=== PATIENT | male | born 1985 | race Caucasian/White ===

== ENCOUNTER 2017-04-24 17:39 | Emergency (ER) | payer MEDICAID ==
--- NOTE | 2017-04-24 18:41 | UC ---
Respiratory Complaint HPI - HPI Summary HPI Summary: 31 year old male presents with complains of cough, chest congestion, and fever. - History of Current Complaint Chief Complaint: UCRespiratory Stated Complaint: CHEST CONGESTION Time Seen by Provider: 04/24/17 18:41 Hx Obtained From: Patient Onset/Duration: Sudden Onset Severity Initially: Moderate Severity Currently: Moderate Pain Scale Used: 0-10 Numeric - 5 - Allergies/Home Medications Allergies/Adverse Reactions: Allergies Allergy/AdvReac Type Severity Reaction Status Date / Time pets Allergy Difficulty Uncoded 04/24/17 18:26 Breathing seasonal Allergy Eyes Uncoded 04/24/17 18:26 Itchy/Swollen/Red/Watery PMH/Surg Hx/FS Hx/Imm Hx Previously Healthy: Yes - Surgical History Surgical History: Yes Surgery Procedure, Year, and Place: ICD placement. hernia abdominal - Family History Known Family History: Positive: None - Social History Alcohol Use: None Substance Use Type: None Smoking Status (MU): Never Smoked Tobacco Have You Smoked in the Last Year: No - Immunization History Most Recent Influenza Vaccination: not this season Review of Systems Constitutional: Fever, Chills Skin: Negative Eyes: Negative ENT: Negative Respiratory: Negative Cardiovascular: Negative Gastrointestinal: Negative Genitourinary: Negative Motor: Negative Neurovascular: Negative Musculoskeletal: Negative Neurological: Headache Psychological: Negative All Other Systems Reviewed And Are Negative: Yes Physical Exam Triage Information Reviewed: Yes Appearance: Ill-Appearing Vital Signs: Initial Vital Signs Temp 38.0 C 04/24/17 18:24 Pulse 92 04/24/17 18:24 Resp 12 04/24/17 18:24 BP 116/63 04/24/17 18:24 Pulse Ox 100 04/24/17 18:24 Vital Signs Reviewed: Yes Eye Exam: Normal ENT Exam: Normal Dental Exam: Normal Neck exam: Normal Neck: Positive: 1 Respiratory Exam: Normal Cardiovascular Exam: Normal Abdominal Exam: Normal Musculoskeletal Exam: Normal Neurological Exam: Normal Psychological Exam: Normal Skin Exam: Normal UC Diagnostic Evaluation - Laboratory O2 Sat by Pulse Oximetry: 100 Respiratory Course/Dx - Differential Dx/Diagnosis Provider Diagnoses: fever Discharge - Discharge Plan Condition: Stable Disposition: OTHER Discharge Disposition Comment: patient suggested to go to the er Patient Education Materials: Fever in Adults (ED) Referrals: Ronnie Rivera MD [Primary Care Provider] - Additional Instructions: patient suggested to go to er for fever, chills, and fatigue after dose of effexor was changed.
--- NOTE | 2017-04-24 19:22 | RAD ---
INDICATION: Cough COMPARISON: None TECHNIQUE: PA and lateral dual-energy views were obtained. FINDINGS: Bones/Soft Tissues: There are no acute bony findings. There is left-sided cardiac pacemaker/defibrillator. Cardiomediastinal: The cardiomediastinal silhouette is normal. Lungs: There are no infiltrates. Pleura: There are no pleural effusions. Other: None IMPRESSION: NO ACTIVE DISEASE.
[2017-04-24 20:06] VITALS: BP 112/64
== END 2017-04-24 20:14 ==
LOC: UCEAST 17:39
DX: R50.9 Fever, unspecified (principal); R09.89 Other specified symptoms and signs involving the circulatory and respiratory systems; R05 Cough
CPT/HCPCS: 71020; 87502; 87651; 99212; G0463

== ENCOUNTER 2017-04-24 20:58 | Emergency (ER) | payer MEDICAID ==
[2017-04-24] MEDS ORDERED: Acetaminophen TAB* 325 MG PO ONE (23:29)
[2017-04-25 00:32] LABS: Urine Bacteria Absent (Absent); Urine Bilirubin Negative (Negative); Urine Glucose Negative (Negative); Urine Nitrite Negative (Negative)
[2017-04-25 00:49] LABS: Hematocrit 43 % (42-52); Mean Corpuscular HGB Conc 35 g/dl (31-36); Mean Corpuscular Hemoglobin 30 pg (27-31); Mean Corpuscular Volume 86 fL (80-94); Mean Platelet Volume 8 um3 (7.4-10.4); Red Cell Distribution Width 13 % (10.5-15)
[2017-04-25 01:01] LABS: Hemoglobin 14.8 g/dl (14.0-18.0); Red Blood Count 4.95 10^6/ul (4.0-5.4); White Blood Count 8.9 10^3/ul (3.5-10.8)
[2017-04-25 01:05] LABS: Albumin 4.7 g/dL (3.2-5.2); Calcium 9.7 mg/dL (8.6-10.3); EGFR African American 112.8 (>60); EGFR Non-African American 87.7 (>60); Globulin 3.7 g/dL (2-4); Potassium 3.3 mmol/L (3.5-5.0); Total Bilirubin 1.9 mg/dL (0.2-1.0); Total Protein 8.4 g/dL (6.4-8.9)
[2017-04-25] MEDS ORDERED: Potassium Chlor TAB* 20 MEQ TAB.ER PO ONE (01:16)
[2017-04-25 02:18] VITALS: BP 96/60
--- NOTE | 2017-04-25 02:41 | ED ---
Yuniel Jaffe Thomas, scribed for Pablo Christie on 04/25/17 at 0007 . Complex/Multi-Sys Presentation - HPI Summary HPI Summary: The pt is a 31 y/o M referred from E c/o myalgia that began three days ago. Pt additionally c/o a fever for the last two days. Pt denies CP and abd pain. The patient has Hx of anxiety and takes Effexor. Two days ago, his dosage of Effexor was increased from 37.5mg to 150mg. PMHx includes a long QTc and PSHx includes a defibrillator. He is on atenolol. The patient is accompanied by a female. - History Of Current Complaint Chief Complaint: EDWeakness Time Seen by Provider: 04/24/17 23:12 Hx Obtained From: Patient, Family/Dinkey Dispatcher - female is in the room Onset/Duration: Lasting Days - onset of symptoms three days ago, Still Present Timing: Constant Aggravating Factor(s): None. Alleviating Factor(s): None. Associated Signs And Symptoms: Positive: Other - Myalgia, fever; NEGATIVE: abd pain, CP - Allergies/Home Medications Allergies/Adverse Reactions: Allergies Allergy/AdvReac Type Severity Reaction Status Date / Time pets Allergy Difficulty Uncoded 04/24/17 21:09 Breathing seasonal Allergy Eyes Uncoded 04/24/17 21:09 Itchy/Swollen/Red/Watery PMH/Surg Hx/FS Hx/Imm Hx Previously Healthy: No Cardiovascular History: Reports: Other Cardiovascular Problems/Disorders - Hx Long QT Respiratory History: Reports: Hx Asthma Psychiatric History: Reports: Hx Anxiety - Surgical History Surgery Procedure, Year, and Place: ICD placement. hernia abdominal Infectious Disease History: No Infectious Disease History: Reports: Hx Hepatitis - hepatitis E Denies: Hx Clostridium Difficile, Hx Human Immunodeficiency Virus (HIV), Hx of Known/Suspected MRSA, Hx Shingles, Hx Tuberculosis, Hx Known/Suspected VRE, Hx Known/Suspected VRSA, History Other Infectious Disease, Traveled Outside the [place] in Last 30 Days - Family History Known Family History: Positive: Diabetes, Other - Long QTc - Social History Alcohol Use: None Hx Substance Use: No Substance Use Type: Reports: None Hx Tobacco Use: No Smoking Status (MU): Never Smoked Tobacco Have You Smoked in the Last Year: No Review of Systems Positive: Fever Negative: Chest Pain Negative: Abdominal Pain Positive: Myalgia All Other Systems Reviewed And Are Negative: Yes Physical Exam - Summary Physical Exam Summary: Appearance: Well appearing, no pain distress Skin: warm, dry, reflects adequate perfusion Head/face: normal Eyes: EOMI, ROWAN ENT: normal Neck: supple, nontender Respiratory: CTA, breath sounds present Cardiovascular: RRR, pulses symmetrical Abdomen: nontender, soft Bowel: present Musculoskeletal: normal, strength/ROM intact Neuro: normal, sensory motor intact, A&Ox3 Triage Information Reviewed: Yes Vital Signs On Initial Exam: Initial Vitals Temp Pulse Resp BP Pulse Ox 100.1 F 101 18 118/74 98 04/24/17 21:06 04/24/17 21:06 04/24/17 21:06 04/24/17 21:06 04/24/17 21:06 Vital Signs Reviewed: Yes - [place] Coma Scale Coma Scale Total: 15 Diagnostics - Vital Signs Vital Signs Temp Pulse Resp BP Pulse Ox 04/24/17 21:06 100.1 F 101 18 118/74 98 - Laboratory Lab Results: Lab Results 04/24/17 04/25/17 04/25/17 Range/Units 23:52 00:20 00:20 WBC 8.9 (3.5-10.8) 10^3/ul RBC 4.95 (4.0-5.4) 10^6/ul Hgb 14.8 (14.0-18.0) g/dl Hct 43 (42-52) % MCV 86 (80-94) fL MCH 30 (27-31) pg MCHC 35 (31-36) g/dl RDW 13 (10.5-15) % Plt Count 238 (150-450) 10^3/ul MPV 8 (7.4-10.4) um3 Neut % (Auto) 82.2 (38-83) % Lymph % (Auto) 11.0 L (25-47) % [place] % (Auto) 6.5 (1-9) % Eos % (Auto) 0 (0-6) % Baso % (Auto) 0.3 (0-2) % Absolute Neuts (auto) 7.3 (1.5-7.7) 10^3/ul Absolute Lymphs (auto) 1.0 (1.0-4.8) 10^3/ul Absolute Monos (auto) 0.6 (0-0.8) 10^3/ul Absolute Eos (auto) 0 (0-0.6) 10^3/ul Absolute Basos (auto) 0 (0-0.2) 10^3/ul Absolute Nucleated RBC 0.01 10^3/ul Nucleated RBC % 0.1 INR (Anticoag Therapy) 1.08 (0.89-1.11) APTT 30.5 (26.0-36.3) seconds Sodium (133-145) mmol/L Potassium (3.5-5.0) mmol/L Chloride (101-111) mmol/L Carbon Dioxide (22-32) mmol/L Anion Gap (2-11) mmol/L BUN (6-24) mg/dL Creatinine (0.67-1.17) mg/dL Est GFR ( Amer) (>60) Est GFR (Non-Af Amer) (>60) BUN/Creatinine Ratio (8-20) Glucose (70-100) mg/dL Calcium (8.6-10.3) mg/dL Total Bilirubin (0.2-1.0) mg/dL AST (13-39) U/L ALT (7-52) U/L Alkaline Phosphatase (34-104) U/L Total Protein (6.4-8.9) g/dL Albumin (3.2-5.2) g/dL Globulin (2-4) g/dL Albumin/Globulin Ratio (1-3) Urine Color [place] Urine Appearance Cloudy Urine pH 5.0 (5-9) Ur Specific [place] 1.021 (1.010-1.030) Urine Protein 1+(30 mg/dl) H (Negative) Urine Ketones 1+ H (Negative) Urine Blood 1+ H (Negative) Urine Nitrate Negative (Negative) Urine Bilirubin Negative (Negative) Urine Urobilinogen Positive H (Negative) Ur Leukocyte Esterase Negative (Negative) Urine WBC (Auto) Trace(0-5/hpf) (Absent) Urine RBC (Auto) 2+(6-10/hpf) H (Absent) Ur Squamous Epith Cells Present H (Absent) Urine Bacteria Absent (Absent) Urine Glucose Negative (Negative) 04/25/17 Range/Units 00:20 WBC (3.5-10.8) 10^3/ul RBC (4.0-5.4) 10^6/ul Hgb (14.0-18.0) g/dl Hct (42-52) % MCV (80-94) fL MCH (27-31) pg MCHC (31-36) g/dl RDW (10.5-15) % Plt Count (150-450) 10^3/ul MPV (7.4-10.4) um3 Neut % (Auto) (38-83) % Lymph % (Auto) (25-47) % [place] % (Auto) (1-9) % Eos % (Auto) (0-6) % Baso % (Auto) (0-2) % Absolute Neuts (auto) (1.5-7.7) 10^3/ul Absolute Lymphs (auto) (1.0-4.8) 10^3/ul Absolute Monos (auto) (0-0.8) 10^3/ul Absolute Eos (auto) (0-0.6) 10^3/ul Absolute Basos (auto) (0-0.2) 10^3/ul Absolute Nucleated RBC 10^3/ul Nucleated RBC % INR (Anticoag Therapy) (0.89-1.11) APTT (26.0-36.3) seconds Sodium 131 L (133-145) mmol/L Potassium 3.3 L (3.5-5.0) mmol/L Chloride 97 L (101-111) mmol/L Carbon Dioxide 26 (22-32) mmol/L Anion Gap 8 (2-11) mmol/L BUN 12 (6-24) mg/dL Creatinine 1.00 (0.67-1.17) mg/dL Est GFR ( Amer) 112.8 (>60) Est GFR (Non-Af Amer) 87.7 (>60) BUN/Creatinine Ratio 12.0 (8-20) Glucose 115 H (70-100) mg/dL Calcium 9.7 (8.6-10.3) mg/dL Total Bilirubin 1.90 H (0.2-1.0) mg/dL AST 216 H (13-39) U/L ALT 230 H (7-52) U/L Alkaline Phosphatase 95 (34-104) U/L Total Protein 8.4 (6.4-8.9) g/dL Albumin 4.7 (3.2-5.2) g/dL Globulin 3.7 (2-4) g/dL Albumin/Globulin Ratio 1.3 (1-3) Urine Color Urine Appearance Urine pH (5-9) Ur Specific [place] (1.010-1.030) Urine Protein (Negative) Urine Ketones (Negative) Urine Blood (Negative) Urine Nitrate (Negative) Urine Bilirubin (Negative) Urine Urobilinogen (Negative) Ur Leukocyte Esterase (Negative) Urine WBC (Auto) (Absent) Urine RBC (Auto) (Absent) Ur Squamous Epith Cells (Absent) Urine Bacteria (Absent) Urine Glucose (Negative) Result Diagrams: 04/25/17 00:20 04/25/17 00:20 Lab Statement: Any lab studies that have been ordered have been reviewed, and results considered in the medical decision making process. Complex Multi-Symp Course/Dx Assessment/Plan: The patient came in with weakness and body aches. Labs were obtained that showed abnormal LFTs. The patient is not in serotonin syndrome as discussed with Dr. Russell, who recommends discharge as there is no indication for admission at present. Otherwise, the patient will follow up with his primary care provider about the continuation of his Effexor. The patient understands. - Diagnoses Differential Diagnoses/HQI/PQRI: Sepsis, Urinary Tract Infection, Other - drug reaction,serotonin syndrome Provider Diagnoses: Weakness, Abnormal LFTs, History of anxiety Discharge - Discharge Plan Condition: Stable Disposition: HOME Patient Education Materials: Weakness (ED), Anxiety (ED) Referrals: Ronnie Rivera MD [Primary Care Provider] - 3 Days Additional Instructions: Follow up with your primary care provider in three days. Return to the emergency room for any new or worsening symptoms. The documentation as recorded by the Yuniel hendrickson Thomas accurately reflects the service I personally performed and the decisions made by , Pablo Christie.
== END 2017-04-25 02:17 | disposition home or self-care (01) ==
LOC: ED 20:58
DX: R50.9 Fever, unspecified (principal); M79.1 Myalgia; R53.1 Weakness; R94.5 Abnormal results of liver function studies; Z86.59 Personal history of other mental and behavioral disorders
CPT/HCPCS: 36415; 80053; 81003; 81015; 85025; 85610; 85730; 87040; 99283; A9270-GY

== ENCOUNTER 2017-04-30 14:47 | Emergency (ER) | payer SELFPAY ==
[2017-04-30 15:23] VITALS: BP 92/55
--- NOTE | 2017-04-30 15:25 | UC ---
Respiratory Complaint HPI - HPI Summary HPI Summary: 31 YEAR OLD MALE PRESENTS WITH COMPLAINS OF COUGH AND CHEST CONGESTION. - History of Current Complaint Chief Complaint: UCRespiratory Stated Complaint: COLD SYMPTOMS Time Seen by Provider: 04/30/17 15:24 Hx Obtained From: Patient Onset/Duration: Sudden Onset Severity Initially: Moderate Severity Currently: Moderate - Allergies/Home Medications Allergies/Adverse Reactions: Allergies Allergy/AdvReac Type Severity Reaction Status Date / Time pets Allergy Difficulty Uncoded 04/30/17 15:24 Breathing seasonal Allergy Eyes Uncoded 04/30/17 15:24 Itchy/Swollen/Red/Watery Home Medications: Home Medications Venlafaxine ER (NF) [Effexor ER (NF)] 150 mg PO DAILY 04/30/17 [History Confirmed 04/30/17] PMH/Surg Hx/FS Hx/Imm Hx Previously Healthy: Yes - Surgical History Surgical History: Yes Surgery Procedure, Year, and Place: ICD placement- long QT gene. hernia abdominal - Family History Known Family History: Positive: None, Diabetes, Other - Long QTc - Social History Alcohol Use: None Substance Use Type: None Smoking Status (MU): Never Smoked Tobacco Have You Smoked in the Last Year: No - Immunization History Most Recent Influenza Vaccination: not this season Review of Systems Constitutional: Negative Skin: Negative Eyes: Negative ENT: Negative Respiratory: Negative Cardiovascular: Negative Gastrointestinal: Negative Genitourinary: Negative Motor: Negative Neurovascular: Negative Musculoskeletal: Negative Neurological: Negative Psychological: Negative All Other Systems Reviewed And Are Negative: Yes Physical Exam Triage Information Reviewed: Yes Vital Signs: Initial Vital Signs Temp 37.1 C 04/30/17 15:17 Pulse 67 04/30/17 15:17 Resp 16 04/30/17 15:17 BP 92/55 04/30/17 15:17 Pulse Ox 97 04/30/17 15:17 Vital Signs Reviewed: Yes Eye Exam: Normal ENT Exam: Normal ENT: Positive: Pharyngeal erythema, Nasal congestion, Nasal drainage Dental Exam: Normal Neck exam: Normal Neck: Positive: 1 Respiratory: Positive: Rhonchi, Wheezing Cardiovascular Exam: Normal Abdominal Exam: Normal Musculoskeletal Exam: Normal Neurological Exam: Normal Psychological Exam: Normal Skin Exam: Normal UC Diagnostic Evaluation - Laboratory O2 Sat by Pulse Oximetry: 97 Respiratory Course/Dx - Differential Dx/Diagnosis Provider Diagnoses: COUGH. CHEST CONGESTION. POST NASAL DRIP Discharge - Discharge Plan Condition: Stable Disposition: HOME Prescriptions: Albuterol 2.5MG/3ML (0.083%)* [Ventolin 2.5 MG/3 ML NEB.TIMOTHY*] 2.5 mg INH Q6H # 90 neb.timothy Albuterol HFA INHALER* [Ventolin HFA Inhaler*] 1 puff INH Q6H PRN #1 mdi PRN Reason: Wheezing Amoxicillin/Clavulanate TAB* [Augmentin TAB 875*] 875 mg PO BID #20 tab LoraTADine TAB(NF) [Claritin 10 MG TAB(NF)] 10 mg PO DAILY #30 tab Patient Education Materials: Allergic Rhinitis (ED) Referrals: Ronnie Rivera MD [Primary Care Provider] -
== END 2017-04-30 16:05 | disposition home or self-care (01) ==
LOC: UCEAST 14:47
DX: R05 Cough (principal); R09.89 Other specified symptoms and signs involving the circulatory and respiratory systems; R09.82 Postnasal drip; Z95.810 Presence of automatic (implantable) cardiac defibrillator
CPT/HCPCS: 99202; G0463

== ENCOUNTER 2017-07-17 19:52 | Emergency (ER) | payer OTHER ==
[2017-07-17] MEDS ORDERED: Glucagon* 1 MG VIAL IV ONE (20:52)
--- NOTE | 2017-07-17 21:02 | ED ---
GI/ HPI - HPI Summary HPI Summary: 31M presents with choking episode today. He states he was eating chicken wing pizza and started to choke on it. He states he attempted for vomit but couldn' t. He tried some water and vomited it up. He is not drooling and there is no respiratory issues. He denies any chest pain or SOB. He states the piece seems like it is stuck in his lower esophagus. He was given some water in the ED and he immediately vomited. He states that felt like this this has happened before but has always been able to swallow water and resolve it but this time it did not work. He denies any medical conditions. per chart though as ICD placement for long QT. - History of Current Complaint Chief Complaint: EDForeignBodyEsophag Time Seen by Provider: 07/17/17 20:41 Stated Complaint: CHOKING Pain Intensity: 4 - Allergy/Home Medications Allergies/Adverse Reactions: Allergies Allergy/AdvReac Type Severity Reaction Status Date / Time pets Allergy Difficulty Uncoded 04/30/17 15:24 Breathing seasonal Allergy Eyes Uncoded 04/30/17 15:24 Itchy/Swollen/Red/Watery PMH/Surg Hx/FS Hx/Imm Hx Endocrine/Hematology History: Denies: Hx Anticoagulant Therapy Cardiovascular History: Reports: Other Cardiovascular Problems/Disorders - Hx Long QT Respiratory History: Reports: Hx Asthma Psychiatric History: Reports: Hx Anxiety - Surgical History Surgery Procedure, Year, and Place: ICD placement- long QT gene. hernia abdominal Infectious Disease History: No Infectious Disease History: Reports: Hx Hepatitis - hepatitis E 2012 Denies: Hx Clostridium Difficile, Hx Human Immunodeficiency Virus (HIV), Hx of Known/Suspected MRSA, Hx Shingles, Hx Tuberculosis, Hx Known/Suspected VRE, Hx Known/Suspected VRSA, History Other Infectious Disease, Traveled Outside the [place] in Last 30 Days - Family History Known Family History: Positive: None, Diabetes, Other - Long QTc - Social History Alcohol Use: None Hx Substance Use: No Substance Use Type: Reports: None Hx Tobacco Use: No Smoking Status (MU): Never Smoked Tobacco Have You Smoked in the Last Year: No Review of Systems Negative: Fever Negative: Chest Pain Negative: Shortness Of Breath Positive: Other All Other Systems Reviewed And Are Negative: Yes Physical Exam Triage Information Reviewed: Yes Vital Signs On Initial Exam: Initial Vitals Temp Pulse Resp BP Pulse Ox 99.2 F 72 18 122/73 100 07/17/17 19:58 07/17/17 19:58 07/17/17 19:58 07/17/17 19:58 07/17/17 19:58 Vital Signs Reviewed: Yes Skin: Positive: Warm, Dry Head/Face: Positive: Normal Head/Face Inspection Eyes: Positive: Normal, Conjunctiva Clear Respiratory/Lung Sounds: Positive: Clear to Auscultation, Breath Sounds Present Cardiovascular: Positive: Normal, RRR Abdomen Description: Positive: Nontender, Soft Bowel Sounds: Positive: Present Musculoskeletal: Positive: Normal Neurological: Positive: Normal Psychiatric: Positive: Normal - [place] Coma Scale Coma Scale Total: 15 Diagnostics - Vital Signs Vital Signs Temp Pulse Resp BP Pulse Ox 07/17/17 19:58 99.2 F 72 18 122/73 100 - Laboratory Result Diagrams: 07/17/17 23:03 07/17/17 23:03 Lab Statement: Any lab studies that have been ordered have been reviewed, and results considered in the medical decision making process. Re-Evaluation - Re-Evaluation First Eval Re-Evaluation Time: 21:30 Change: Unchanged Comment: keeps vomiting with glucagon GIGU Course/Dx - Course Course Of Treatment: 31M presents with choking episode today. He states he was eating chicken wing pizza and started to choke on it. He states he attempted for vomit but couldn't. He tried some water and vomited it up. He is not drooling and there is no respiratory issues. He denies any chest pain or SOB. He states the piece seems like it is stuck in his lower esophagus. He was given some water in the ED and he immediately vomited. He states that felt like this this has happened before but has always been able to swallow water and resolve it but this time it did not work. on exam no resp distress. lungs CTA. managing airway well. gave water and patient immediately vomited. gave glucagon and patient continues to vomit. dr cota will come into remove object. dr cota scoped him and removed foreign body and said to place on month of omeprazole and follow up in 2-3 weeks. - Diagnoses Differential Diagnoses - Male: Esophagitis/Gastritis, GI Foreign Body, Other - abrasion esophagus Provider Diagnoses: Foreign body in esophagus Discharge - Discharge Plan Condition: Good Disposition: HOME Prescriptions: Omeprazole CAP* [Prilosec CAP* 20 MG] 20 mg PO DAILY #30 cap. Patient Education Materials: Esophageal Foreign Body (ED), Procedural Sedation (ED) Referrals: Ronnie Rivera MD [Primary Care Provider] - Darrel Cota MD [Medical Doctor] - Additional Instructions: Take omeprazole once a day for a month Follow up with GI in 2-3 weeks Return to ED if develop any new or worsening symptoms
[2017-07-17] MEDS ORDERED: Midazolam* 1 MG/ML 10 ML VIAL (10 MG) ONE (22:59)
[2017-07-17 23:19] LABS: Hematocrit 46 % (42-52); Hemoglobin 15.9 g/dl (14.0-18.0); Mean Corpuscular HGB Conc 35 g/dl (31-36); Mean Corpuscular Hemoglobin 30 pg (27-31); Mean Corpuscular Volume 86 fL (80-94); Mean Platelet Volume 8 um3 (7.4-10.4); Platelet Count 326 10^3/ul (150-450); Red Blood Count 5.37 10^6/ul (4.0-5.4); Red Cell Distribution Width 14 % (10.5-15); White Blood Count 22.1 10^3/ul (3.5-10.8)
[2017-07-17 23:34] LABS: EGFR Non-African American 113.5 (>60)
[2017-07-17] MEDS ORDERED: fentaNYL* 50 MCG/ML 2 ML VIAL (100 MCG VIAL) ONE (23:34)
[2017-07-17 23:45] LABS: ABS Basophils 0 10^3/ul (0-0.2); ABS Eosinophils 0 10^3/ul (0-0.6); ABS Lymphocytes 1.2 10^3/ul (1.0-4.8); ABS Monocytes 0.7 10^3/ul (0-0.8); ABS Neutrophils 20.2 10^3/ul (1.5-7.7); ABS Nucleated RBC 0.1 10^3/ul; Eosinophil % 0.2 % (0-6); Lymphocyte % 5.6 % (25-47); Nucleated Red Blood Cells % 0.3
[2017-07-18 02:50] VITALS: BP 101/54
--- NOTE | 2017-07-18 03:04 | CONS ---
GASTROENTEROLOGY CONSULT DATE: 07/17/17 - EMERGENCY DEPT CONSULTING PHYSICIANS: Freddy Domingo; Ronnie Rivera. REASON FOR CONSULTATION: Food bolus impaction tonight while eating chicken wings and P2 chicken. HISTORY: This 31-year-old man who has an AICD for long QT syndrome. Tonight was eating P2 and all of a sudden he could not swallow any fluid. That has continued now for lodud-vhi-c-half hours. He has tried to pour some fluid down but to no avail. He has had similar events since 2011, may be once a month or every other month. He says it is more prone with dry food. He is rather vague on issues. He denies any chronic acid indigestion or heartburn, although he has tried Tums for these episodes. It is not clear that they have helped. He has generally good appetite and stable weight. PAST MEDICAL HISTORY: 1. Anxiety - on Effexor. 2. History of long QT syndrome - his brother at age 15 and maternal cousin also of sudden . He was tested and was felt to have a gene and in 2000 had an AICD placed. The battery was placed in 2013. He has seen Dr. Richard, the last visit he believes August 2016. His AICD went off several times when it was first placed and that was attributed to his growing. It also went off once in 2011 when he was playing basketball. 3. History of acute hepatitis - he says at [facility] he was told he had hepatitis E. He has never been out of the country. Dr. Rivera obtained followup LFTs and bilirubin was 1.9, AST 216, ALT 230. SOCIAL HISTORY: He is and has two young children, 5 and 2. He has worked for a [employer] since January. REVIEW OF SYSTEMS: No recent history of syncope, palpitations, chest pain, vomiting apart from dysphagia episodes, pulmonary disease, skin rash, allergies , asthma, abdominal pain, or abdominal surgery. His bowels are normal. PHYSICAL EXAMINATION: He is a somewhat sallow complected man spitting in a plastic bag, in no overt cardiorespiratory distress. HEENT exam is unremarkable. He has no adenopathy. There is a wire in the left infraclavicular area and AICD on the left mid abdomen. Heart sounds are regular. Breath sounds are normal. The abdomen is symmetric, soft, and nontender. Rectal deferred. Extremities showed no edema. Neurologic is nonfocal with normal cranial nerves, orientation, speech, and movement of all 4 extremities. DIAGNOSTIC STUDIES/LAB DATA: Labs - pending. IMPRESSION: A 31-year-old man with six years of solid food dysphagia and a relative paucity of classic acid indigestion or peptic complaints making eosinophilic esophagitis more likely than a classic peptic stricture. He has an AICD in place and that should not be affected by conscious sedation with midazolam and fentanyl. He is aware of activity restrictions following the EGD and possibility of needing a diagnostic study later. He is aware of a small chance of requiring readmission, further complications, or resistant foreign body. [id number]/[facility] #: [id number] [facility]
--- NOTE | 2017-07-18 18:19 | PRO ---
DATE: 07/17/17 REFERRING PHYSICIAN: Ronnie Rivera. PROCEDURE: Upper gastrointestinal endoscopy and removal of esophageal foreign body INDICATION: See separate consultation. He was eating chicken tonight and felt it lodged. This has happened before. Informed consent was obtained. ENDOSCOPIST: Dr. Ledesma. MEDICATION: Midazolam 8, fentanyl 25. FINDINGS: He is a generally healthy appearing, slightly sallow-complected young man in no distress. EGD: Larynx - symmetric, limited views. Esophagus - easily entered and the mucosa does show some furrowing in the mid portion. There are couple of pieces of chicken in the esophageal lumen. They can be advanced through a fibrous ring which is located at about 38. Overall, there appeared to be no deep injury. There was a small hiatal hernia. Stomach - limited views are normal. The antrum appears normal. Duodenum - the pylorus and bulb appear normal. The patient was restless and rather than administer more opiates with the goal having been accomplished, the scope was withdrawn. IMPRESSION: 1. Small hiatal hernia. 2. Esophageal furrowing consistent with eosinophilic esophagitis. 3. Gastroesophageal junction ring - would be consistent with foreshortening of the esophagus, on account of eosinophilic esophagitis and possibly some underlying gastroesophageal reflux disease combination. He will be sent home on omeprazole 20 mg. [id number]/[facility] #: [id number] [facility]
== END 2017-07-18 02:35 | disposition home or self-care (01) ==
LOC: ED 19:52
PROC: 0DC58ZZ Extirpation of Matter from Esophagus, Via Natural or Artificial Opening Endoscopic (ICD-10-PCS; principal; 2017-07-17)
DX: T18.128A Food in esophagus causing other injury, initial encounter (principal); X58.XXXA Exposure to other specified factors, initial encounter; Y92.9 Unspecified place or not applicable
CPT/HCPCS: 36415; 80053; 85025; 99156; 99284; J1610; J2250; J3010

== ENCOUNTER 2017-08-24 05:14 | Emergency (ER) | payer OTHER ==
[2017-08-24] MEDS ORDERED: Ondansetron ODT TAB* 4 MG PO ONE (05:32)
[2017-08-24] MEDS ORDERED: Hyoscyamine TAB* 0.125 MG PO ONE (05:33)
[2017-08-24 06:46] VITALS: BP 113/69
--- NOTE | 2017-08-24 06:57 | ED ---
Vijay Jaffe Jennifer, scribed for Yuval Nazario MD on 08/24/17 at 0533 . Abdominal Pain/Female - HPI Summary HPI Summary: The patient is a 32 year old male who presents with non-stop vomiting after shanna food poisoning from a steak burrito at 19:00. He felt tired and nauseous and then began vomiting between 23:00-00:00. He denies diarrhea. He complains of stomach cramping. The patient has an AICD in [facility] for his history of Long QT syndrome. - History of Current Complaint Chief Complaint: EDAbdPain Stated Complaint: VOMITING/ABD PAIN Time Seen by Provider: 08/24/17 05:22 Hx Obtained From: Patient Onset/Duration: Gradual Onset, Lasting Hours - Began at 19:00 last night Timing: Constant Severity Initially: Moderate Severity Currently: Moderate Pain Intensity: 6 Pain Scale Used: 0-10 Numeric Radiates: No Character: Cramping Aggravating Factor(s): Nothing Alleviating Factor(s): Nothing Associated Signs and Symptoms: Positive: Other: - vomiting, fatigue, nausea. NEGATIVE: diarrhea. Allergies/Adverse Reactions: Allergies Allergy/AdvReac Type Severity Reaction Status Date / Time pets Allergy Difficulty Uncoded 04/30/17 15:24 Breathing seasonal Allergy Eyes Uncoded 04/30/17 15:24 Itchy/Swollen/Red/Watery PMH/Surg Hx/FS Hx/Imm Hx Endocrine/Hematology History: Denies: Hx Anticoagulant Therapy Cardiovascular History: Reports: Other Cardiovascular Problems/Disorders - Hx Long QT Respiratory History: Reports: Hx Asthma Psychiatric History: Reports: Hx Anxiety - Surgical History Surgery Procedure, Year, and Place: ICD placement- long QT gene. hernia abdominal Infectious Disease History: No Infectious Disease History: Reports: Hx Hepatitis - hepatitis E 2012 Denies: Hx Clostridium Difficile, Hx Human Immunodeficiency Virus (HIV), Hx of Known/Suspected MRSA, Hx Shingles, Hx Tuberculosis, Hx Known/Suspected VRE, Hx Known/Suspected VRSA, History Other Infectious Disease, Traveled Outside the [place] in Last 30 Days - Family History Known Family History: Positive: Diabetes, Other - Long QTc - Social History Alcohol Use: None Hx Substance Use: No Substance Use Type: Reports: None Hx Tobacco Use: No Smoking Status (MU): Never Smoked Tobacco Have You Smoked in the Last Year: No Review of Systems Positive: Fatigue Positive: Abdominal Pain, Vomiting, Nausea. Negative: Diarrhea All Other Systems Reviewed And Are Negative: Yes Physical Exam - Summary Physical Exam Summary: Appearance: Well appearing, no pain distress Skin: warm, dry, reflects adequate perfusion Head/face: normal Eyes: EOMI, ROWAN ENT: normal Neck: supple, non-tender Respiratory: CTA, breath sounds present Cardiovascular: RRR, pulses symmetrical Abdomen: non-tender, soft Bowel: present Musculoskeletal: normal, strength/ROM intact Neuro: normal, sensory motor intact, A&Ox3 Triage Information Reviewed: Yes Vital Signs On Initial Exam: Initial Vitals Temp Pulse Resp BP Pulse Ox 100.2 F 111 18 111/73 97 08/24/17 05:20 08/24/17 05:20 08/24/17 05:20 08/24/17 05:20 08/24/17 05:20 Vital Signs Reviewed: Yes Diagnostics - Vital Signs Vital Signs Temp Pulse Resp BP Pulse Ox 08/24/17 05:20 100.2 F 111 18 111/73 97 - Laboratory Lab Statement: Any lab studies that have been ordered have been reviewed, and results considered in the medical decision making process. Re-Evaluation - Re-Evaluation First Eval Change: Improved Abdominal Pain Fem Course/Dx - Course Course Of Treatment: pt and his present with abrupt onset of N/V and cramping after sharing a [place] restaurant burrito. Has long QT syndrome but with an AICD. Given ODT Zofran (prolongs QT) and levsin. Feeling better, discharged with most likely food related illness. - Diagnoses Provider Diagnoses: Food poisoning, Congenital long QT syndrome Discharge - Discharge Plan Condition: Good Disposition: HOME Prescriptions: Hyoscyamine Sulfate 0.125 mg PO Q4H PRN #15 tab.rapdis PRN Reason: cramping Ondansetron ODT TAB* [Zofran 4 MG Odt TAB*] 4 mg PO Q8H PRN #4 tab.odt PRN Reason: Nausea Patient Education Materials: Food Poisoning (ED) Forms: *Work Release Referrals: Ronnie Rivera MD [Primary Care Provider] - Additional Instructions: Giles diet, drink plenty of fluids, gatorade G2 may help. Return with persistent vomiting, weakness, palpitations, worse or other concerns. As discussed, Zofran can prolong QT. The documentation as recorded by the scribeVijay Jennifer accurately reflects the service I personally performed and the decisions made by me, Yuval Nazario MD.
== END 2017-08-24 06:46 | disposition home or self-care (01) ==
LOC: ED 05:14
DX: T62.8X1A Toxic effect of other specified noxious substances eaten as food, accidental (unintentional), initial encounter (principal); I45.81 Long QT syndrome; Z95.810 Presence of automatic (implantable) cardiac defibrillator
CPT/HCPCS: 99283; A9270-GY

== ENCOUNTER 2018-09-14 10:08 | Emergency (ER) | payer OTHER ==
[2018-09-14 11:29] VITALS: BP 103/65
--- NOTE | 2018-09-14 12:00 | UC ---
Respiratory Complaint HPI - HPI Summary HPI Summary: Pt presents with c/o of sudden onset of nasal congestion, sinus pressure, cough , PND and ST. Pt has hx of asthma and has used INH once yesterday. - History of Current Complaint Chief Complaint: UCRespiratory Stated Complaint: SORE THROAT Time Seen by Provider: 09/14/18 11:54 Hx Obtained From: Patient Onset/Duration: Sudden Onset, Still Present Timing: Constant Severity Initially: Mild Severity Currently: Moderate Pain Intensity: 4 Character: Cough: Nonproductive Associated Signs And Symptoms: Positive: URI, Nasal Congestion, Sinus Discomfort - Risk Factors Pulmonary Embolism Risk Factors: Negative Cardiac Risk Factors: Negative Pseudomonas Risk Factors: Chronic Lung Disease Tuberculosis Risk Factors: Negative - Allergies/Home Medications Allergies/Adverse Reactions: Allergies Allergy/AdvReac Type Severity Reaction Status Date / Time duloxetine [From Cymbalta] Allergy See Comment Verified 09/14/18 11:30 pets Allergy Difficulty Uncoded 04/30/17 15:24 Breathing seasonal Allergy Eyes Uncoded 04/30/17 15:24 Itchy/Swollen/Red/Watery PMH/Surg Hx/FS Hx/Imm Hx Previously Healthy: Yes Respiratory History: Asthma Other History Of: Negative For: Anticoagulant Therapy - Surgical History Surgical History: Yes Surgery Procedure, Year, and Place: ICD placement- long QT gene. hernia abdominal - Family History Known Family History: Positive: None, Diabetes, Other - Long QTc - Social History Occupation: Employed Full-time Lives: With Family Alcohol Use: None Substance Use Type: None Smoking Status (MU): Never Smoked Tobacco Have You Smoked in the Last Year: No - Immunization History Most Recent Influenza Vaccination: not this season Review of Systems All Other Systems Reviewed And Are Negative: Yes Constitutional: Positive: Fatigue Skin: Positive: Negative Eyes: Positive: Negative ENT: Positive: Sore Throat, Nasal Discharge, Sinus Congestion Respiratory: Positive: Cough Cardiovascular: Positive: Negative Gastrointestinal: Positive: Negative Genitourinary: Positive: Negative Motor: Positive: Negative Neurovascular: Positive: Negative Musculoskeletal: Positive: Negative Neurological: Positive: Negative Psychological: Positive: Negative Is Patient Immunocompromised?: No Physical Exam Triage Information Reviewed: Yes Appearance: Ill-Appearing Vital Signs: Initial Vital Signs Temp 98.4 F 09/14/18 11:27 Pulse 96 09/14/18 11:27 Resp 18 09/14/18 11:27 BP 103/65 09/14/18 11:27 Pulse Ox 97 09/14/18 11:27 Vital Signs Reviewed: Yes Eye Exam: Normal ENT: Positive: Pharynx normal, Nasal congestion, TM bulging - bilateral Dental Exam: Normal Neck exam: Normal Respiratory Exam: Normal Respiratory: Positive: Normal breath sounds Cardiovascular Exam: Normal Musculoskeletal Exam: Normal Neurological Exam: Normal Psychological Exam: Normal Skin Exam: Normal Respiratory Course/Dx - Differential Dx/Diagnosis Differential Diagnosis/HQI/PQRI: Bronchitis, Influenza Provider Diagnosis: Viral syndrome Discharge - Sign-Out/Discharge Documenting (check all that apply): Patient Departure All imaging exams completed and their final reports reviewed: No Studies - Discharge Plan Condition: Stable Disposition: HOME Prescriptions: Albuterol 2.5MG/3ML (0.083%)* [Ventolin 2.5 MG/3 ML NEB.TIMOTHY*] 2.5 mg INH Q6H # 90 neb.timothy Albuterol HFA INHALER* [Ventolin HFA Inhaler*] 1 puff INH Q6H PRN #1 mdi PRN Reason: Wheezing Fexofenadine/Pseudoephedrine [Katie-D 24 Hour Tablet] 1 each PO DAILY #7 tab.er.24h Patient Education Materials: Viral Syndrome (ED) Referrals: Ronnie Rivera MD [Primary Care Provider] - If Needed - Billing Disposition and Condition Condition: STABLE Disposition: Home
== END 2018-09-14 12:06 | disposition home or self-care (01) ==
LOC: UCEAST 10:08
DX: B34.9 Viral infection, unspecified (principal); R09.81 Nasal congestion; R05 Cough; J45.909 Unspecified asthma, uncomplicated; Z91.09 Other allergy status, other than to drugs and biological substances
CPT/HCPCS: 99211; G0463

== ENCOUNTER 2018-12-20 18:59 | Emergency (ER) | payer SELFPAY ==
[2018-12-20 19:42] VITALS: BP 118/69
--- NOTE | 2018-12-20 19:56 | UC ---
Lower Extremity/Ankle HPI - HPI Summary HPI Summary: Left thigh pain x 4 days. Feels throbbing. he reports having restless legs nightly but this felt different. he was nervous about a blood clot. denies recent surgery, CA dx, smoker, and denies long trips recently. he does a lot of lifting at home; son is disabled. denies redness, swelling, or mass. denies recent injury. states once in a while it feels deep. - History of Current Complaint Chief Complaint: UCLowerExtremity Stated Complaint: LEG PAIN Time Seen by Provider: 12/20/18 19:44 Hx Obtained From: Patient Pain Intensity: 7 Pain Scale Used: 0-10 Numeric Aggravating Factor(s): Nothing Alleviating Factor(s): Nothing Able to Bear Weight: Yes - Allergies/Home Medications Allergies/Adverse Reactions: Allergies Allergy/AdvReac Type Severity Reaction Status Date / Time duloxetine [From Cymbalta] Allergy See Comment Verified 12/20/18 19:42 pets Allergy Difficulty Uncoded 04/30/17 15:24 Breathing seasonal Allergy Eyes Uncoded 04/30/17 15:24 Itchy/Swollen/Red/Watery PMH/Surg Hx/FS Hx/Imm Hx Previously Healthy: Yes Cardiovascular History: Hypertension Respiratory History: Asthma Other History Of: Negative For: Anticoagulant Therapy - Surgical History Surgical History: Yes Surgery Procedure, Year, and Place: ICD placement- long QT gene. hernia abdominal - Family History Known Family History: Positive: None, Diabetes, Other - Long QTc - Social History Alcohol Use: None Substance Use Type: None Smoking Status (MU): Never Smoked Tobacco Have You Smoked in the Last Year: No - Immunization History Most Recent Influenza Vaccination: not this season Review of Systems All Other Systems Reviewed And Are Negative: Yes Constitutional: Negative: Fever Skin: Negative: Rash, Bruising Respiratory: Positive: Negative. Negative: Shortness Of Breath Cardiovascular: Positive: Negative Neurovascular: Negative: Decreased Pulses Musculoskeletal: Positive: Myalgia - L thigh pain. Negative: Calf Tenderness, Decreased ROM, Edema Neurological: Negative: Paresthesia, Numbness Physical Exam Triage Information Reviewed: Yes Appearance: Well-Appearing Vital Signs: Initial Vital Signs Pulse 68 12/20/18 19:37 Resp 12 12/20/18 19:37 BP 118/69 12/20/18 19:37 Pulse Ox 99 12/20/18 19:37 Vital Signs Reviewed: Yes Respiratory Exam: Normal Cardiovascular Exam: Normal Musculoskeletal: Positive: Strength Intact - L thigh, ROM Intact, No Edema, Other: - L knee unremarkable. Neurological: Positive: Alert, Muscle Tone Normal Skin: Negative: Other - no bruising noted. Diagnostics - Radiology No standard instances Radiology Interpretation Completed By: Radiologist Summary of Radiographic Findings: No bony abnormalities. Lower Extremity Course/Dx - Course Course Of Treatment: L thigh pain x 4 days, w/ occasional feeling of deep pain. On exam completely unremarkable, no signs of mass. On imaging no obvious bone related causes. We discussed risk factors for DVT and he does not have. vitals good. At this point it appears to be msk in etiology and i've asked him to f/u w/ pcp. - Differential Dx/Diagnosis Differential Diagnosis/HQI/PQRI: Fracture (Closed), Infection, Osteomyelitis, Sprain, Strain, Tendonitis, Tenosynovitis Provider Diagnosis: Thigh pain Discharge - Sign-Out/Discharge Documenting (check all that apply): Patient Departure All imaging exams completed and their final reports reviewed: No - Discharge Plan Condition: Good Disposition: HOME Patient Education Materials: Leg Pain (ED) Referrals: Bravo Abarca DO [Primary Care Provider] - Additional Instructions: Please follow up with your primary care provider if this persists. - Billing Disposition and Condition Condition: GOOD Disposition: Home - Attestation Statements Provider Attestation: Per institutional requirements, I have reviewed the chart, however, I was not consulted specifically or made aware of this patient by the midlevel provider. I did not personally evaluate, interact with , or disposition this patient.
--- NOTE | 2018-12-21 14:41 | UC ---
- Progress Note Progress Note: RADIOLOGY REPORT REVIEWED. NO EVIDENCE FOR FRACTURE. NO CHANGE IN MGMT. Course/Dx - Diagnoses Provider Diagnoses: Thigh pain Discharge - Sign-Out/Discharge Documenting (check all that apply): Post-Discharge Follow Up All imaging exams completed and their final reports reviewed: Yes - Discharge Plan Condition: Good Disposition: HOME Patient Education Materials: Leg Pain (ED) Referrals: Bravo Abarca DO [Primary Care Provider] - Additional Instructions: Please follow up with your primary care provider if this persists. - Billing Disposition and Condition Condition: GOOD Disposition: Home
== END 2018-12-20 20:35 | disposition home or self-care (01) ==
LOC: UCEAST 18:59
DX: M79.652 Pain in left thigh (principal); I10 Essential (primary) hypertension
CPT/HCPCS: 99211; G0463

== ENCOUNTER 2019-02-17 16:30 | Emergency (ER) | payer OTHER ==
--- OUTSIDE RECORDS SUMMARY | 2019-02-17 16:36 | XMS REPORT | Summary of Care ---
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 albuterol Take by 0 Active (PROVENTIL,VENTOLIN) inhalation Continuous. ipratropium Take 2 Puffs by 0 Active (ATROVENT HFA) 17 inhalation MCG/ACT Inhalation NEEDED. Aero Soln inhalation venlafaxine Take 75 mg by 0 Active (EFFEXOR) 75 MG Oral mouth THREE Tab TIMES DAILY. Desvenlafaxine Take 1 Tab by 60 Tab 0 02/04/2019 Discontinued Succinate 50 MG Oral mouth DAILY. 9 TABLET SR 24 HRIndications: Anxiety and depression documented as of this encounter (statuses as of 02/13/2019) Active Problems Problem Noted Date Anxiety and depression Asthma Prolonged QT interval Overview: defibrillator in place Seasonal allergic rhinitis documented as of this encounter (statuses as of 02/13/2019) Social History Tobacco Use Types Packs/Day Years Used Date Never Smoker Smokeless Tobacco: Never Used Alcohol Use Drinks/Week oz/Week Comments Not Currently Sex Assigned at Date Recorded Not on file Job Start Date Occupation Industry Not on file Not on file Not on file Travel History Travel Start Travel End No recent travel history available. documented as of this encounter Last Filed Vital Signs Vital Sign Reading Time Taken Comments Blood Pressure 118/62 02/13/2019 11:44 AM EDT Pulse 57 02/13/2019 11:44 AM EDT Temperature - - Respiratory Rate - - Oxygen Saturation 98% 02/13/2019 11:44 AM EDT Inhaled Oxygen Concentration - - Weight 87.2 kg (192 lb 3.2 oz) 02/13/2019 11:44 AM EDT Height 172.7 cm (5' 8") 02/13/2019 11:44 AM EDT Body Mass Index 29.22 02/13/2019 11:44 AM EDT documented in this encounter Patient Instructions Patient InstructionsBravo Abarca DO - 02/13/2019 11:40 AM EDT The treated areas may swell, get red and crusted 1. Clean once to twice daily with mild soap and water. 2. After cleaning, apply Bacitracin or Polysporin ointment and a sterile dressing. These OTC products can be found in any drugstore. Do NOT apply NEOSPORIN! 3. Allow 3-4 weeks to heal. 4. If you have any excess soreness, drainage or prolonged healing please call. If you have not received a letter or phone in 1-2 weeks regarding your biopsy report please call the office. documented in this encounter Progress Notes Bravo Abarca DO - 02/13/2019 11:40 AM EDTLesion on back right mid. That has become larger in size and color has become darker and oozed few days ago. Some itch. No pain Physical exam: Right mid back: skin tag like lesion with pigmentation. Diameter: 2 mm A/P: neoplasm of unknown behavior. Appears skin tag like but enlargement in size and pigmentation developing is concern. Discussed biopsy and he agreed to shave. Procedures: Shave Biopsy location: right mid back Indication, risks and possible complications of the procedure has been explained in depth to the patient who indicates a complete understanding and wishes to have the procedure performed today. Written and oral informed consent obtained detailing risks (including bleeding, infection, and scar formation), benefits, and alternatives. The patient's questions were answered. Patient denies allergy to betadine, alcohol swabs, lidocaine or epinephrine Verification and time out performed. 1. Cleansing of skin with alcohol 2. Lidocaine 1% with epi - local given - 0.3 cc 3. Cleansing with betadine. 4. Shave removal with Dermablade using saucerization technique 5. Hemostasis with silver nitrate sticks and sterile gauze. 6. Bacitracin ointment on biopsied site covered with band aid. 7. Post-op instruction sheet given 8. Call if problems occur. 9. The specimen was submitted in formalin to the Pathology Department. 10. Patient tolerated procedure well. documented in this encounter Plan of Treatment Name Type Priority Associated Diagnoses Date/Time TISSUE EXAM Lab Routine Neoplasm of uncertain behavior 02/13/2019 12:00 PM EDT Name Type Priority Associated Diagnoses Order Schedule SHAVING LESION(S) Procedures Routine Neoplasm of uncertain Ordered: 2018 DOCUMENT SIZE AND behavior LOCATION Health Maintenance Due Date Last Done Comments INFLUENZA VACCINE (#1) 2019 DEPRESSION SCREENING 11/13/2019 Postponed from 1998 (Other) HIV SCREENING 11/13/2019 Postponed from 2001 (Patient refused) PNEUMOCOCCAL 0-64 YRS (1 of 1 - 11/13/2019 Postponed from 1992 PPSV23) (Patient refused) HPV IMMUNIZATION SERIES Aged Out No longer eligible based on patient's age to complete this topic MENINGOCOCCAL VACCINE IMM Aged Out No longer eligible based on patient's age to complete this topic documented as of this encounter Results Not on filedocumented in this encounter Visit Diagnoses Diagnosis Neoplasm of uncertain behavior - Primary Neoplasm of uncertain behavior, site unspecified documented in this encounter documented as of this encounter
[2019-02-17 16:52] VITALS: BP 123/75
--- NOTE | 2019-02-17 16:54 | UC ---
HPI Wound/Suture Re-check - HPI Summary HPI Summary: He had a mole removed on Monday which is 4 days ago. His has been taking care of it with peroxide and antibiotic ointment and is concerned that it might be getting infected. - History Of Current Complaint Stated Complaint: WOUND RECHECK Time Seen by Provider: 02/17/19 16:37 - Allergies/Home Medications Allergies/Adverse Reactions: Allergies Allergy/AdvReac Type Severity Reaction Status Date / Time duloxetine [From Cymbalta] Allergy See Comment Verified 02/17/19 16:46 pets Allergy Difficulty Uncoded 02/17/19 16:46 Breathing seasonal Allergy Eyes Uncoded 02/17/19 16:46 Itchy/Swollen/Red/Watery Home Medications: Home Medications Ipratropium [place] [Atrovent Hfa] 12.9 gm IH Q12HR PRN 02/17/19 [History Confirmed 02/17/19] PMH/Surg Hx/FS Hx/Imm Hx Previously Healthy: Yes Other History Of: Negative For: Anticoagulant Therapy - Surgical History Surgical History: Yes Surgery Procedure, Year, and Place: ICD placement- long QT gene. hernia abdominal - Family History Known Family History: Positive: None, Diabetes, Other - Long QTc - Social History Alcohol Use: None Substance Use Type: None Smoking Status (MU): Never Smoked Tobacco Have You Smoked in the Last Year: No - Immunization History Most Recent Influenza Vaccination: not this season Review of Systems All Other Systems Reviewed And Are Negative: Yes Skin: Positive: Other - Weeping Physical Exam - Summary Physical Exam Summary: He is nontoxic in appearance with stable vital signs Triage Information Reviewed: Yes Appearance: Well-Appearing Vital Signs Reviewed: Yes Skin: Positive: Other - Wound is about 1.25 cm x 1.25 cm. The edges are clean and there is some granulation tissue Course/Dx - Course Course Of Treatment: The wound looks fine to me and I recommended they continue with what they have been doing - Diagnosis Provider Diagnosis: Visit for wound check Discharge - Sign-Out/Discharge Documenting (check all that apply): Patient Departure All imaging exams completed and their final reports reviewed: No Studies - Discharge Plan Condition: Stable Disposition: HOME Patient Education Materials: Acute Wound Care (ED) Referrals: Bravo Abarca DO [Primary Care Provider] - - Billing Disposition and Condition Condition: STABLE Disposition: Home
== END 2019-02-17 17:05 | disposition home or self-care (01) ==
LOC: UCEAST 16:30
DX: Z98.890 Other specified postprocedural states (principal)
CPT/HCPCS: 99211; G0463

== ENCOUNTER 2019-05-20 09:55 | Emergency (ER) | payer OTHER ==
[2019-05-20 10:35] VITALS: BP 120/74
--- NOTE | 2019-05-20 12:37 | UC ---
Complaint Male HPI - HPI Summary HPI Summary: Patient presents to urgent care stating that the last 2 days his urine has been dark. Patient states yesterday he had mild dysuria with one episode of urination. Patient denies any rectal pain. No abdominal pain no nausea or vomiting. No fever, chills, rash. Cannot no penile discharge. No concerns for STI. No testicular pain. No back pain. No history of similar. Patient states she's been eating and drinking but not his normal baseline. Patient states his children have been sick and so he's been taking care of them. Patient is on no special diets. Patient without a history of liver disease. Patient's medications reviewed this visit. - History of Current Complaint Chief Complaint: UCGU Stated Complaint: URINARY Time Seen by Provider: 05/20/19 11:56 Hx Obtained From: Patient Severity Currently: None Pain Intensity: 0 - Allergies/Home Medications Allergies/Adverse Reactions: Allergies Allergy/AdvReac Type Severity Reaction Status Date / Time duloxetine [From Cymbalta] Allergy See Comment Verified 05/20/19 10:31 pets Allergy Difficulty Uncoded 05/20/19 10:31 Breathing seasonal Allergy Eyes Uncoded 05/20/19 10:31 Itchy/Swollen/Red/Watery PMH/Surg Hx/FS Hx/Imm Hx Previously Healthy: Yes Other History Of: Negative For: Anticoagulant Therapy - Surgical History Surgical History: Yes Surgery Procedure, Year, and Place: ICD placement- long QT gene. hernia abdominal - Family History Known Family History: Positive: None, Diabetes, Other - Long QTc, Non- Contributory - Social History Occupation: Unemployed Lives: With Family Alcohol Use: None Substance Use Type: None Smoking Status (MU): Never Smoked Tobacco Have You Smoked in the Last Year: No - Immunization History Most Recent Influenza Vaccination: not this season Review of Systems All Other Systems Reviewed And Are Negative: Yes Constitutional: Positive: Negative Skin: Positive: Negative Eyes: Positive: Negative ENT: Positive: Negative Respiratory: Positive: Negative Cardiovascular: Positive: Negative Gastrointestinal: Positive: Negative Genitourinary: Positive: Other - Urine dark Is Patient Immunocompromised?: No Physical Exam - Summary Physical Exam Summary: Vital Signs Reviewed: Yes A+Ox3, no distress Eyes: Conjunctiva Clear, ROWAN. EOM intact and full ENT: Hearing grossly normal TM x 2 clear, mmoist, uvula midline, no exudate, no erythema Neck: Positive: Supple Respiratory: Positive: No respiratory distress, No accessory muscle use + CTA throughout no w/r Cardiovascular: RRR nl s1, s2 no m/r CBT <2 sec abd soft + BS nt/nd no guarding, no distension, no CVA Musculoskeletal Exam: MURILLO x 4 without difficulty Strength Intact, ROM Intact Neurological: Positive: Alert, + sensation throughout Psychological: Positive: Normal Response To examiner Skin: Positive: no rash, no ecchymosis Triage Information Reviewed: Yes Vital Signs: Initial Vital Signs Temp 98.3 F 05/20/19 10:31 Pulse 63 05/20/19 10:31 Resp 16 05/20/19 10:31 BP 120/74 05/20/19 10:31 Pulse Ox 100 05/20/19 10:31 Complaint Male Course/Dx - Course Course Of Treatment: Patient presents to urgent care sample S2 days his urine has been dark. Patient with a small amount of dysuria yesterday. No hematuria. No back pain. Patient states his little bit better. Patient was unable to complaints. Patient states he has been eating and drinking less because his family's been sick and has been a caregiver. On exam vital signs are stable. Patient without having focal findings. Patient's urine has trace blood but no other concerning findings. We'll send for culture. I did review this with patient. Recommend he stay hydrated avoiding excessive caffeine and alcohol. Strict return precautions discussed. Patient comfortable with plan. - Differential Dx/Diagnosis Provider Diagnosis: Dysuria Discharge ED - Sign-Out/Discharge Documenting (check all that apply): Patient Departure All imaging exams completed and their final reports reviewed: No Studies - Discharge Plan Condition: Stable Disposition: HOME Patient Education Materials: Dysuria (ED) Referrals: Bravo Abarca DO [Primary Care Provider] - Additional Instructions: - stay well hydrated. Drink plenty of non-alcoholic, non-caffinated beverages - okay to take ibuprofen (Advil, Motrin) and tylenol every 3 hours for pain or fever - your urine has been sent for additional testing. If you need a different treatment,such as antibiotics, you will receive a call from a care production team manager contact your doctor, return here or go to the emergency department with any questions or concerns - Billing Disposition and Condition Condition: STABLE Disposition: Home
== END 2019-05-20 12:41 | disposition home or self-care (01) ==
LOC: UCCORT 09:55
DX: R30.0 Dysuria (principal); Z88.8 Allergy status to other drugs, medicaments and biological substances; Z91.09 Other allergy status, other than to drugs and biological substances
CPT/HCPCS: 81003; 87086; 99211; G0463